=== PATIENT | female | born 1950 | race African-American/Black ===

== ENCOUNTER 2017-01-22 07:57 | Emergency (ER) | payer MEDICARE, OTHER ==
[~2017-01-22] VITALS: Ht 162.6 cm; Wt 47.0 kg
[~2017-01-22 07:57] MED LIST: ALBU18HF2 IH; GLIP5TAB12; HYDR-3511 PO; LEVO500T2 PO; METF500T4 PO; METR500T PO; PHEN100C4; PHEN100C4 PO
[2017-01-22] MEDS ORDERED: HYDROCODONE/ACETAMINOPHEN 5/325MG TABLET PO ONE ×2 (09:00→11:30)
[2017-01-22 12:13] VITALS: BP 126/63
== END 2017-01-22 12:36 | disposition home or self-care (01) ==
LOC: ER 08:15
DX: M25.551 Pain in right hip (principal); M25.552 Pain in left hip; I10 Essential (primary) hypertension; E11.9 Type 2 diabetes mellitus without complications; Z79.84 Long term (current) use of oral hypoglycemic drugs
CPT/HCPCS: 99283

== ENCOUNTER 2019-11-28 08:55 | Inpatient (IN) | payer MEDICARE, MEDICAID ==
[~2019-11-28] VITALS: Ht 165.1 cm; Wt 52.2 kg
[~2019-11-28 08:55] MED LIST changes: +ACET5SOL2 PO; -ALBU18HF2 IH; +GABA-533 PO; -HYDR-3511 PO; -LEVO500T2 PO; +METF-416 PO; -METF500T4 PO; -METR500T PO; -PHEN100C4 PO; +TUSSL MT
[2019-11-28] MEDS ORDERED: MORPHINE SULFATE 4 MG/ML CPJ (NOT FOR IM USE) IV STA (09:03)
[2019-11-28] MEDS ORDERED: SODIUM CHLORIDE 0.9% 1,000 ML IV ONE (09:03)
[2019-11-28] MEDS ORDERED: ONDANSETRON HCL 4MG/2ML INJ IV STA (09:03)
[2019-11-28 10:54] LABS: BASOPHILS % 0.7 % (0.0-2.0); EOSINOPHILS % 0.1 % (0.0-5.0); HEMATOCRIT. 43.5 % (36.0-48.0); HEMOGLOBIN. 14.4 g/dL (12.0-16.0); LYMPHOCYTES % 16.4 % (20.0-50.0); MEAN CORPUSCULAR HEMOGLOBIN 30.5 pg (28.0-32.0); MEAN CORPUSCULAR VOLUME 92.4 fL (81.0-99.0); MONOCYTES % 14.9 % (2.0-8.0); NEUTROPHILS % 67.9 % (40.0-76.0); RED BLOOD CELL COUNT 4.71 mill/uL (4.2-5.4); RED CELL DISTRIBUTION WIDTH 13.4 % (11.6-14.6)
[2019-11-28 10:59] LABS: CHLORIDE 102 mEq/L (98-107)
[2019-11-28 11:02] LABS: INR 0.9
[2019-11-28 11:07] LABS: ETHANOL BLOOD < 10 mg/dL
[2019-11-28 11:09] LABS: CREATINE KINASE 255 IU/L (26-192)
[2019-11-28 11:12] LABS: PLATELET 242 x1000/uL (130-400)
[2019-11-28] MEDS ORDERED: CLINDAMYCIN 600 MG in DEXTROSE 5% WATER 50 ML IV ONE (12:15)
[2019-11-28] MEDS ORDERED: LEVOFLOXACIN 500MG PREMIX 100 ML IV NR ×2 (16:30→20:00)
[2019-11-28] MEDS ORDERED: GUAIFENESIN 200MG/10ML SUGAR FREE UDC PO PRN (16:30)
[2019-11-28] MEDS ORDERED: NA PHOS,M-B/NA PHOS,DI-BA ENEMA 118ML PR PRN (16:30)
[2019-11-28] MEDS ORDERED: IPRATROPIUM/ALBUTEROL 0.5-3(2.5)MG/3ML NEB NEB PRN (16:30)
[2019-11-28] MEDS ORDERED: DOCUSATE SODIUM 100MG CAPSULE PO PRN (16:30)
[2019-11-28] MEDS ORDERED: DIPHENHYDRAMINE 50MG/ML VIAL IV PRN (16:30)
[2019-11-28] MEDS ORDERED: LORAZEPAM 2MG/ML CPJ IV PRN (16:30)
[2019-11-28] MEDS ORDERED: ACETAMINOPHEN 325MG TABLET PO PRN (16:30)
[2019-11-28] MEDS ORDERED: MAGNESIUM/ALUMINUM HYDROXIDE/SIMETHICONE 30ML UDC PO PRN (16:30)
[2019-11-28] MEDS ORDERED: ONDANSETRON HCL 4MG/2ML INJ IV PRN (16:30)
[2019-11-28] MEDS ORDERED: VANCOMYCIN 1 G PREMIX 200 ML IV NR ×2 (17:00→21:00)
[2019-11-28 18:15] LABS: CLARITY URINE CLEAR (CLEAR); COLOR URINE YELLOW (YELLOW); KETONES URINE 3+ (NEGATIVE); LEUKOCYTE ESTERASE URINE NEGATIVE (NEGATIVE); NITRITE URINE NEGATIVE (NEGATIVE); OCCULT BLOOD URINE TRACE (NEGATIVE); PH URINE 5.5 (4.5-8.0); PROTEIN URINE 3+ (NEGATIVE)
[2019-11-28 18:19] VITALS: BP 130/81
[2019-11-28 18:26] LABS: *AMPHETAMINES SCREEN URINE NEGATIVE (NEGATIVE); *BARBITURATES SCREEN URINE NEGATIVE (NEGATIVE); *BENZODIAZEPINES SCREEN URINE NEGATIVE (NEGATIVE); *COCAINE SCREEN URINE PRESUMTIVE POSITIVE (NEGATIVE); METHADONE URINE SCREEN NEGATIVE (NEGATIVE); OPIATES URINE SCREEN PRESUMTIVE POSITIVE (NEGATIVE)
[2019-11-28 18:27] LABS: CANNABINOID URINE SCREEN NEGATIVE (NEGATIVE); PHENCYCLIDINE URINE SCREEN NEGATIVE (NEGATIVE)
[2019-11-28] MEDS: ENOXAPARIN 40MG/0.4ML SYR SUBCUT SCH (18:56)
[2019-11-28 20:00] VITALS: BP 160/77
[2019-11-28 21:02] LABS: CHLORIDE 104 mEq/L (98-107)
[2019-11-29] VITALS: BP 157/83
[2019-11-29] MEDS: MORPHINE SULFATE 2 MG/ML CPJ (NOT FOR IM USE) IV PRN ×2 (02:17→19:45)
[2019-11-29 04:00] VITALS: BP 120/69
[2019-11-29] MEDS ORDERED: VANCOMYCIN 750 MG PREMIX 150 ML IV SCH ×2 (05:00→08:00)
[2019-11-29 06:53] LABS: BASOPHILS % 0.9 % (0.0-2.0); EOSINOPHILS % 0.2 % (0.0-5.0); HEMATOCRIT. 35.1 % (36.0-48.0); HEMOGLOBIN. 11.8 g/dL (12.0-16.0); MEAN CORPUSCULAR HEMOGLOBIN 30.7 pg (28.0-32.0); MEAN CORPUSCULAR VOLUME 91.2 fL (81.0-99.0); MEAN PLATELET VOLUME 11.2 fl (7.4-10.4); MONOCYTES % 12.7 % (2.0-8.0); NEUTROPHILS % 63.2 % (40.0-76.0); PLATELET 207 x1000/uL (130-400); RED BLOOD CELL COUNT 3.85 mill/uL (4.2-5.4); RED CELL DISTRIBUTION WIDTH 13.5 % (11.6-14.6)
[2019-11-29 07:08] LABS: CHLORIDE 99 mEq/L (98-107)
[2019-11-29 07:24] LABS: LDL CHOLESTEROL 80 mg/dL (5-100)
[2019-11-29 07:27] LABS: HDL CHOLESTEROL 70 mg/dL (40-59)
[2019-11-29 08:00] VITALS: BP 171/88
[2019-11-29] MEDS: ASPIRIN 81MG EC TABLET PO SCH (08:21)
[2019-11-29] MEDS: CLONIDINE 0.1MG TABLET PO PRN (08:22)
[2019-11-29] MEDS ORDERED: SODIUM CHLORIDE 0.9% 1,000 ML IV SCH (09:00)
[2019-11-29] MEDS ORDERED: DEXTROSE 50% WATER 50ML SYRINGE IV PRN ×2 (11:00)
[2019-11-29 12:00] VITALS: BP 118/63
[2019-11-29] MEDS: BLOOD SUGAR DIAGNOSTIC STRIP TEST SCH ×3 (12:04→21:34)
[2019-11-29] MEDS: HYDROCODONE/ACETAMINOPHEN 5/325MG TABLET PO PRN (12:04)
[2019-11-29] MEDS: LEVETIRACETAM 500MG TABLET PO SCH ×2 (12:04→21:33)
[2019-11-29] MEDS: INSULIN LISPRO 100 UNITS/ML SUBCUT SCH ×3 (12:06→21:46)
[2019-11-29] MEDS ORDERED: BLOOD SUGAR DIAGNOSTIC STRIP TEST SCH (12:20)
[2019-11-29] MEDS ORDERED: INSULIN LISPRO 100 UNITS/ML SUBCUT SCH (12:50)
[2019-11-29] MEDS: PHENYTOIN SODIUM EXTENDED 100MG CAPSULE PO SCH ×2 (13:17→21:34)
[2019-11-29] MEDS: LEVOFLOXACIN 250MG PREMIX 50 ML IV SCH (13:18)
[2019-11-29] MEDS ORDERED: LEVOFLOXACIN 250MG PREMIX 50 ML IV SCH (14:00)
[2019-11-29 16:00] VITALS: BP 120/66
[2019-11-29] MEDS: ENOXAPARIN 40MG/0.4ML SYR SUBCUT SCH (16:27)
[2019-11-29 20:00] VITALS: BP 116/58
[2019-11-29] MEDS: VANCOMYCIN 500 MG PREMIX 100 ML IV SCH (21:45)
[2019-11-30] VITALS: BP 121/61
[2019-11-30] MEDS: MORPHINE SULFATE 2 MG/ML CPJ (NOT FOR IM USE) IV PRN (03:58)
[2019-11-30 04:00] VITALS: BP 117/67
[2019-11-30] MEDS: PHENYTOIN SODIUM EXTENDED 100MG CAPSULE PO SCH ×3 (05:52→22:49)
[2019-11-30] MEDS: BLOOD SUGAR DIAGNOSTIC STRIP TEST SCH ×4 (06:39→21:00)
[2019-11-30 07:55] LABS: BASOPHILS % 0.5 % (0.0-2.0); EOSINOPHILS % 0.5 % (0.0-5.0); HEMATOCRIT. 36.5 % (36.0-48.0); HEMOGLOBIN. 12.3 g/dL (12.0-16.0); LYMPHOCYTES % 25.5 % (20.0-50.0); MEAN CORPUSCULAR HEMOGLOBIN 30.9 pg (28.0-32.0); MEAN CORPUSCULAR VOLUME 91.9 fL (81.0-99.0); MEAN PLATELET VOLUME 9.7 fl (7.4-10.4); MONOCYTES % 11.5 % (2.0-8.0); PLATELET 279 x1000/uL (130-400); RED BLOOD CELL COUNT 3.97 mill/uL (4.2-5.4); RED CELL DISTRIBUTION WIDTH 13.1 % (11.6-14.6)
[2019-11-30 08:00] VITALS: BP 120/69
[2019-11-30 08:03] LABS: CHLORIDE 102 mEq/L (98-107)
[2019-11-30] MEDS: ASPIRIN 81MG EC TABLET PO SCH (08:34)
[2019-11-30] MEDS: INSULIN LISPRO 100 UNITS/ML SUBCUT SCH ×4 (08:37→21:00)
[2019-11-30] MEDS: VANCOMYCIN 500 MG PREMIX 100 ML IV SCH ×2 (09:00→21:00)
[2019-11-30] MEDS: HYDROCODONE/ACETAMINOPHEN 5/325MG TABLET PO PRN (10:41)
[2019-11-30] MEDS: LORAZEPAM 2MG/ML CPJ IM PRN (11:59)
[2019-11-30 12:00] VITALS: BP 108/61
[2019-11-30] MEDS ORDERED: DEXTROSE 50% WATER 50ML SYRINGE IV PRN (12:30)
[2019-11-30] MEDS: LEVOFLOXACIN 250MG PREMIX 50 ML IV SCH (13:18)
[2019-11-30 16:00] VITALS: BP 127/72
[2019-11-30] MEDS: ENOXAPARIN 40MG/0.4ML SYR SUBCUT SCH (16:30)
[2019-11-30 20:00] VITALS: BP 92/54
[2019-12-01] VITALS: BP 131/75
[2019-12-01] MEDS: LORAZEPAM 2MG/ML CPJ IM PRN ×4 (03:06→20:10)
[2019-12-01 04:00] VITALS: BP 128/72
[2019-12-01] MEDS: BLOOD SUGAR DIAGNOSTIC STRIP TEST SCH ×4 (06:22→21:06)
[2019-12-01] MEDS: PHENYTOIN SODIUM EXTENDED 100MG CAPSULE PO SCH ×3 (06:22→21:06)
[2019-12-01 08:00] VITALS: BP_SYST 105; BP_SYST 128; BP_DIAS 44; BP_DIAS 93
[2019-12-01] MEDS: ASPIRIN 81MG EC TABLET PO SCH (08:32)
[2019-12-01] MEDS: INSULIN LISPRO 100 UNITS/ML SUBCUT SCH ×4 (08:40→21:00)
[2019-12-01] MEDS: VANCOMYCIN 500 MG PREMIX 100 ML IV SCH (08:41)
[2019-12-01 11:28] LABS: BASOPHILS % 0.7 % (0.0-2.0); EOSINOPHILS % 0.3 % (0.0-5.0); HEMATOCRIT. 37.5 % (36.0-48.0); HEMOGLOBIN. 12.6 g/dL (12.0-16.0); LYMPHOCYTES % 35.4 % (20.0-50.0); MEAN CORPUSCULAR HEMOGLOBIN 30.5 pg (28.0-32.0); MEAN CORPUSCULAR VOLUME 90.9 fL (81.0-99.0); MONOCYTES % 12.5 % (2.0-8.0); NEUTROPHILS % 51.1 % (40.0-76.0); PLATELET 298 x1000/uL (130-400); RED BLOOD CELL COUNT 4.12 mill/uL (4.2-5.4); RED CELL DISTRIBUTION WIDTH 13.1 % (11.6-14.6)
[2019-12-01 11:39] LABS: CHLORIDE 103 mEq/L (98-107)
[2019-12-01 12:00] VITALS: BP 16/71
[2019-12-01] MEDS: LEVOFLOXACIN 250MG PREMIX 50 ML IV SCH (13:15)
[2019-12-01] MEDS ORDERED: LEVOFLOXACIN 250MG TABLET PO SCH (15:00)
[2019-12-01 16:00] VITALS: BP 85/49
[2019-12-01] MEDS: ENOXAPARIN 40MG/0.4ML SYR SUBCUT SCH (16:55)
[2019-12-01 20:00] VITALS: BP 143/83
[2019-12-02] VITALS (8 sets, daily range): BP systolic 102–165; BP diastolic 67–87
[2019-12-02] MEDS: LORAZEPAM 2MG/ML CPJ IM PRN ×3 (02:04→21:24)
[2019-12-02] MEDS: CLONIDINE 0.1MG TABLET PO PRN (04:50)
[2019-12-02] MEDS: PHENYTOIN SODIUM EXTENDED 100MG CAPSULE PO SCH ×3 (05:00→21:31)
[2019-12-02] MEDS: BLOOD SUGAR DIAGNOSTIC STRIP TEST SCH ×4 (06:39→20:27)
[2019-12-02 08:08] LABS: VITAMIN B12 SERUM 838 pg/mL (211-911)
[2019-12-02] MEDS: ASPIRIN 81MG EC TABLET PO SCH (09:05)
[2019-12-02] MEDS: INSULIN LISPRO 100 UNITS/ML SUBCUT SCH ×4 (09:21→20:30)
[2019-12-02] MEDS: AMLODIPINE 5MG TABLET PO SCH (13:40)
[2019-12-02] MEDS: ENOXAPARIN 40MG/0.4ML SYR SUBCUT SCH (17:46)
[2019-12-03] VITALS: BP 152/83
[2019-12-03 04:00] VITALS: BP 136/73
[2019-12-03] MEDS: PHENYTOIN SODIUM EXTENDED 100MG CAPSULE PO SCH (05:35)
[2019-12-03] MEDS: LORAZEPAM 2MG/ML CPJ IM PRN (06:20)
[2019-12-03] MEDS: BLOOD SUGAR DIAGNOSTIC STRIP TEST SCH (06:45)
[2019-12-03 07:10] LABS: HIV SCREEN 4G Non Reactive (Non Reactive)
[2019-12-03 08:00] VITALS: BP 149/88
[2019-12-03] MEDS: ASPIRIN 81MG EC TABLET PO SCH (08:47)
[2019-12-03] MEDS: AMLODIPINE 5MG TABLET PO SCH (08:47)
[2019-12-03] MEDS: INSULIN LISPRO 100 UNITS/ML SUBCUT SCH (08:51)
[2019-12-03 08:57] LABS: BASOPHILS % 1.5 % (0.0-2.0); EOSINOPHILS % 0.7 % (0.0-5.0); HEMATOCRIT. 35.9 % (36.0-48.0); HEMOGLOBIN. 12.1 g/dL (12.0-16.0); LYMPHOCYTES % 27.6 % (20.0-50.0); MEAN CORPUSCULAR HEMOGLOBIN 30.6 pg (28.0-32.0); MEAN CORPUSCULAR VOLUME 90.8 fL (81.0-99.0); MEAN PLATELET VOLUME 9.1 fl (7.4-10.4); MONOCYTES % 7.2 % (2.0-8.0); PLATELET 307 x1000/uL (130-400); RED BLOOD CELL COUNT 3.95 mill/uL (4.2-5.4); RED CELL DISTRIBUTION WIDTH 13.3 % (11.6-14.6)
[2019-12-03 09:07] LABS: CHLORIDE 101 mEq/L (98-107)
[2019-12-03 10:49] VITALS: BP 149/88
== END 2019-12-03 12:15 | DRG 720 ==
LOC: ER 09:48 → 6EST 13:14 → EDBEDREQ 13:19 → EDBEDREQSVC 13:19 → ENRESERV 16:37
PROVIDERS: ADMIT Internal Medicine; ATTEND Internal Medicine
DX: A41.9 Sepsis, unspecified organism (principal); I10 Essential (primary) hypertension; E87.1 Hypo-osmolality and hyponatremia; S81.812A Laceration without foreign body, left lower leg, initial encounter; L84 Corns and callosities; R26.89 Other abnormalities of gait and mobility; L03.115 Cellulitis of right lower limb; E11.51 Type 2 diabetes mellitus with diabetic peripheral angiopathy without gangrene; R62.7 Adult failure to thrive; M19.90 Unspecified osteoarthritis, unspecified site; Z20.828 Contact with and (suspected) exposure to other viral communicable diseases; W18.39XA Other fall on same level, initial encounter; F14.10 Cocaine abuse, uncomplicated; Y92.009 Unspecified place in unspecified non-institutional (private) residence as the place of occurrence of the external cause; Z88.0 Allergy status to penicillin; Z79.1 Long term (current) use of non-steroidal anti-inflammatories (NSAID); Z79.899 Other long term (current) drug therapy; Z79.84 Long term (current) use of oral hypoglycemic drugs; Y93.89 Activity, other specified; Y99.8 Other external cause status
CPT/HCPCS: 36415; 71045; 73521; 73560; 80048; 80053; 80061; 80305; 80320; 81003; 82550; 82607; 82962; 83036; 84443; 84484; 85025; 87389; 87426; 93005; 93923; 96365; 97162; 97530; 99285; J1650; J1815; J1956; J2060; J2270; J2405; J3370; J3490; J7030; J7060; G0480